=== PATIENT | female | born 1990 | race African-American/Black ===

== ENCOUNTER 2018-10-08 18:09 | Emergency (ER) | payer SELFPAY ==
--- OUTSIDE RECORDS SUMMARY | 2018-10-08 18:11 | XMS REPORT ---
:1990 [facility] Address [address] [place] [address] [address] [place] [address] Care Team Providers Name Role Phone Unavailable Unavailable Unavailable Problems This patient has no known problems. Allergies, Adverse Reactions, Alerts This patient has no known allergies or adverse reactions. Medications This patient has no known medications. Encounters Start End Encounter Admission Attending Care Care Encounter Date/Time Date/Time Type Type Clinicians Facility Department ID 2016-11-15 2016-11-15 Outpatient [facility] [id number] 00:00:00 00:00:00
[2018-10-08 18:47] LABS: Urine Blood 3+ (NEG); Urine Glucose NEGATIVE (NEG); Urine Protein NEGATIVE (NEG)
[2018-10-08 19:22] LABS: Absolute Lymphocytes (CBC) 2.3 K/uL (0.7-4.9); Absolute Neutrophil 8.6 K/uL (1.8-8.0); Basophils % 0.5 % (0-1.3); Eosinophils % 1.1 % (0-4.4); Hematocrit 38.6 % (36.0-45.0); Lymphocytes % 18.9 % (15.3-44.8); MPV 7.6 fL (7.6-11.3); Monocytes % 8.1 % (3.3-12.3); RBC Red Blood Cell Count 4.53 M/uL (3.86-4.86)
[2018-10-08 19:49] LABS: Potassium 3.6 mmol/L (3.5-5.1)
--- NOTE | 2018-10-08 20:43 | RAD REPORT ---
EXAM DESCRIPTION: US - Transvaginal OB - 10/08/2018 7:36 pm CLINICAL HISTORY: VAGINAL BLEEDING COMPARISON: <Comparisons> FINDINGS: A single gestational sac is seen within the uterus. The shape of the sac is within normal limits for gestational age. Within the sac is a single pole with crown-rump length of 4 mm, cor relating to estimated gestational age of 6 weeks 1 day. Estimated date of delivery is 06/02/2019. Heart rate is 125 BPM. The placenta is not yet developed due to early gestational age. Prominent hemorrhagic cyst measuring 6 cm noted in the left ovary. The right ovary is unremarkable. N o maternal adnexal masses. Normal Doppler blood flow was demonstrated to both ovaries. IMPRESSION: Single live early intrauterine gestation with estimated gestational age of 6 weeks 1 day , JS 06/02/2019. 6 cm hemorrhagic cyst left ovary.
--- NOTE | 2018-10-08 21:10 | ER ---
Nurse's Notes [facility] Name: Charlene Evans Age: 28 yrs Sex: Female : 1990 Arrival Date: 10/08/2018 Time: 18:12 Bed 19 Private MD: None, None Diagnosis: Threatened Presentation: 10/08 18:13 Presenting complaint: Patient states: bright red vaginal spotting and abd cramping sv started Sunday and today has increased. Denies dizziness/SOB. Pt is about 7 weeks . Transition of care: patient was not received from another setting of care. Onset of symptoms was October 06, 2018. Care prior to arrival: None. 18:13 Method Of Arrival: Ambulatory sv 18:13 Acuity: JOSE 3 sv 18:30 Risk Assessment: Do you want to hurt yourself or someone else? Patient reports no tw2 desire to harm self or others. Initial Sepsis Screen: Does the patient meet any 2 criteria? No. Patient's initial sepsis screen is negative. Does the patient have a suspected source of infection? No. Patient's initial sepsis screen is negative. Triage Assessment: 18:30 General: Appears in no apparent distress. well groomed, Behavior is calm, cooperative, tw2 appropriate for age. Pain: Denies pain. : Reports vaginal bleeding that is bright red, light flow. 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 - Social history:: Smoking status: . - Ebola Screening: : Patient denies travel to an Ebola-affected area in the 21 days before illness onset. Screenin:30 Abuse screen: Denies threats or abuse. Nutritional screening: No deficits noted. tw2 Tuberculosis screening: No symptoms or risk factors identified. Fall Risk None identified. Assessment: 18:31 General: Appears in no apparent distress. well groomed, Behavior is calm, cooperative, tw2 appropriate for age. Pain: Denies pain. Neuro: Level of Consciousness is awake, alert, obeys commands, Oriented to person, place, time, situation. Cardiovascular: Heart tones S1 S2 Capillary refill < 3 seconds Patient's skin is warm and dry. Respiratory: Airway is patent Respiratory effort is even, unlabored, Respiratory pattern is regular, symmetrical, Breath sounds are clear bilaterally. GI: No signs and/or symptoms were reported involving the gastrointestinal system. : Urine is clear, Reports vaginal bleeding that is. EENT: No signs and/or symptoms were reported regarding the EENT system. Derm: No signs and/or symptoms reported regarding the dermatologic system. Musculoskeletal: No signs and/or symptoms reported regarding the musculoskeletal system. Range of motion: intact in all extremities. 19:20 General: Appears in no apparent distress. comfortable, well groomed, well developed, ao Behavior is calm, cooperative, appropriate for age. Pain: Denies pain. Neuro: Level of Consciousness is awake, alert, obeys commands, Oriented to person, place, time, situation, Appropriate for age Moves all extremities. Full function Speech is normal, Facial symmetry appears normal. Cardiovascular: Capillary refill < 3 seconds Patient's skin is warm and dry. Respiratory: Airway is patent Respiratory effort is even, unlabored, Respiratory pattern is regular, symmetrical. GI: Abdomen is non-distended. : Reports vaginal bleeding that is. EENT: No signs and/or symptoms were reported regarding the EENT system. Derm: No signs and/or symptoms reported regarding the dermatologic system. Musculoskeletal: Range of motion: intact in all extremities. 20:54 Reassessment: Patient appears in no apparent distress at this time. No changes from ao previously documented assessment. Patient and/or family updated on plan of care and expected duration. Pain level reassessed. 21:29 Reassessment: Dc instructions given to patient and significant other. Patient agree to ao follow up on blood work and with OBG and PCP. Vital Signs: 18:18 BP 129 / 84; Pulse 91; Resp 18; Temp 98.4; Pulse Ox 99% ; Weight 106.59 kg; Height 5 sv ft. 5 in. (165.10 cm); Pain 2/10; 20:52 BP 124 / 70; Pulse 87; Resp 14; Pulse Ox 99% on R/A; Pain 0/10; ao 18:18 Body Mass Index 39.11 (106.59 kg, 165.10 cm) sv ED Course: 18:12 Patient arrived in ED. mr 18:13 None, None is Private Physician. mr 18:18 Triage completed. sv 18:19 Arm band placed on. sv 18:22 Mau Avilez NP is PHCP. pm1 18:22 Oliverio Rouse MD is Attending Physician. pm1 18:30 Shivani Dudley, TRINI is Primary Nurse. tw2 18:31 Bed in low position. Call light in reach. Pulse ox on. NIBP on. tw2 18:37 Urine collected: clean catch specimen, cloudy, juan m colored. jb1 18:53 Inserted saline lock: 22 gauge in right antecubital area, using aseptic technique. tw2 Blood collected. 19:00 Report given to TRINI Galan - pending US. labs sent. tw2 19:36 US Transvaginal Ob In Process Unspecified. EDMS 21:28 No provider procedures requiring assistance completed. IV discontinued, intact, ao bleeding controlled, No redness/swelling at site. Pressure dressing applied. Administered Medications: No medications were administered Outcome: 21:09 Discharge ordered by MD. pm1 21:28 Discharged to home ambulatory. ao 21:28 Condition: stable 21:28 Discharge instructions given to patient, Instructed on discharge instructions, follow up and referral plans. Demonstrated understanding of instructions, follow-up care. 21:30 Patient left the ED. ao Signatures: Dispatcher [employer] EDMS Octavio Hollingsworth jb1 Devika Carmona RN RN sv Marizol Morin, TRINI Galan RN, Patrick, NP FUR COMBER pm1 Shivani Dudley RN RN tw2 Corrections: (The following items were deleted from the chart) 18:19 18:13 Presenting complaint: Patient states: bright red vaginal spotting started Sunday sv and today has increased. Denies dizziness/SOB. Pt is about 7 weeks . sv
--- NOTE | 2018-10-08 21:10 | EDPHYS ---
Physician Documentation [facility] Name: Charlene Evans Age: 28 yrs Sex: Female : 1990 Arrival Date: 10/08/2018 Time: 18:12 Bed 19 Private MD: None, None ED Physician Oliverio Rouse HPI: 10/08 19:00 This 28 yrs old Black Female presents to ER via Ambulatory with complaints of Vaginal pm1 Bleeding, 7wks . 19:00 The patient presents with vaginal bleeding that is light. Onset: The symptoms/episode pm1 began/occurred 2 day(s) ago. Modifying factors: The symptoms are alleviated by nothing, the symptoms are aggravated by nothing. Associated signs and symptoms: Pertinent negatives: dysuria, fever, nausea, vomiting. Severity of symptoms: in the emergency department the symptoms are actually worse. The patient is sexually active, does not use protection during intercourse. The patient has not experienced similar symptoms in the past. The patient has not recently seen a physician. Patient took plan B multiple weeks ago but took a test about 1 week ago and she is still . 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 - Social history:: Smoking status: . - Ebola Screening: : Patient denies travel to an Ebola-affected area in the 21 days before illness onset. ROS: 19:00 Positive for vaginal bleeding, Negative for burning with urination, vaginal pm1 discharge. 19:00 Constitutional: Negative for fever, chills, and weight loss, Eyes: Negative for injury, pain, redness, and discharge, ENT: Negative for injury, pain, and discharge, Neck: Negative for injury, pain, and swelling, Cardiovascular: Negative for chest pain, palpitations, and edema, Respiratory: Negative for shortness of breath, cough, wheezing, and pleuritic chest pain, Abdomen/GI: Negative for abdominal pain, nausea, vomiting, diarrhea, and constipation, Back: Negative for injury and pain, MS/Extremity: Negative for injury and deformity, Skin: Negative for injury, rash, and discoloration, Neuro: Negative for headache, weakness, numbness, tingling, and seizure. Exam: 19:00 Constitutional: This is a well developed, well nourished patient who is awake, alert, pm1 and in no acute distress. Head/Face: Normocephalic, atraumatic. Eyes: Pupils equal round and reactive to light, extra-ocular motions intact. Lids and lashes normal. Conjunctiva and sclera are non-icteric and not injected. Cornea within normal limits. Periorbital areas with no swelling, redness, or edema. ENT: Nares patent. No nasal discharge, no septal abnormalities noted. Tympanic membranes are normal and external auditory canals are clear. Oropharynx with no redness, swelling, or masses, exudates, or evidence of obstruction, uvula midline. Mucous membranes moist. Neck: Trachea midline, no thyromegaly or masses palpated, and no cervical lymphadenopathy. Supple, full range of motion without nuchal rigidity, or vertebral point tenderness. No Meningismus. Chest/axilla: Normal chest wall appearance and motion. Nontender with no deformity. No lesions are appreciated. Cardiovascular: Regular rate and rhythm with a normal S1 and S2. No gallops, murmurs, or rubs. Normal PMI, no JVD. No pulse deficits. Respiratory: Lungs have equal breath sounds bilaterally, clear to auscultation and percussion. No rales, rhonchi or wheezes noted. No increased work of breathing, no retractions or nasal flaring. Abdomen/GI: Soft, non-tender, with normal bowel sounds. No distension or tympany. No guarding or rebound. No evidence of tenderness throughout. Back: No spinal tenderness. No costovertebral tenderness. Full range of motion. Skin: Warm, dry with normal turgor. Normal color with no rashes, no lesions, and no evidence of cellulitis. MS/ Extremity: Pulses equal, no cyanosis. Neurovascular intact. Full, normal range of motion. 19:00 Neuro: Orientation: is normal, Motor: is normal, moves all fours. Vital Signs: 18:18 BP 129 / 84; Pulse 91; Resp 18; Temp 98.4; Pulse Ox 99% ; Weight 106.59 kg; Height 5 sv ft. 5 in. (165.10 cm); Pain 2/10; 20:52 BP 124 / 70; Pulse 87; Resp 14; Pulse Ox 99% on R/A; Pain 0/10; ao 18:18 Body Mass Index 39.11 (106.59 kg, 165.10 cm) sv MDM: 18:27 Patient medically screened. pm1 21:07 Data reviewed: vital signs. Data interpreted: Pulse oximetry: on room air is 99 %. pm1 Interpretation: normal. 21:09 Counseling: I had a detailed discussion with the patient and/or guardian regarding: the pm1 historical points, exam findings, and any diagnostic results supporting the discharge/admit diagnosis, lab results, radiology results, the need for outpatient follow up, to return to the emergency department if symptoms worsen or persist or if there are any questions or concerns that arise at home. 10/08 18:40 Order name: Urine Dipstick--Ancillary (enter results); Complete Time: 21:07 bd 10/08 18:40 Order name: Urine --Ancillary (enter results); Complete Time: 21:07 bd 10/08 18:41 Order name: Quantitative Hcg; Complete Time: 21:07 pm1 10/08 18:41 Order name: Abo/rh Typing; Complete Time: 21:07 pm1 10/08 18:41 Order name: Basic Metabolic Panel; Complete Time: 21:07 pm1 10/08 18:41 Order name: CBC with Diff; Complete Time: 21:07 pm1 10/08 18:27 Order name: Urine Dipstick-Ancillary (obtain specimen); Complete Time: 18:37 pm1 10/08 18:27 Order name: Urine Test (obtain specimen); Complete Time: 18:37 pm1 10/08 18:41 Order name: IV Saline Lock; Complete Time: 18:58 pm1 10/08 18:41 Order name: Labs collected and sent; Complete Time: 18:58 pm1 10/08 18:41 Order name: NPO; Complete Time: 18:45 pm1 10/08 18:42 Order name: US Transvaginal Ob; Complete Time: 21:07 pm1 Administered Medications: No medications were administered Disposition: 10/09 09:38 Co-signature as Attending Physician, Oliverio Rouse MD. Disposition: 10/08/18 21:09 Discharged to Home. Impression: Threatened . - Condition is Stable. - Discharge Instructions: Threatened Miscarriage, Pelvic Rest. - Medication Reconciliation Form, Thank You Letter, Antibiotic Education, Prescription Opioid Use, Work release form form. - Follow up: Emergency Department; When: As needed; Reason: Worsening of condition. Follow up: Private Physician; When: 2 - 3 days; Reason: Recheck today's complaints, Continuance of care, Re-evaluation by your physician. - Problem is new. - Symptoms have improved. Signatures: Dispatcher [employer] Devika Miller, RN RN Adama Armando RN RN ao Mau Avilez NP PETROLEUM GEOLOGIST pm1 Shivani Dudley RN RN tw2 Oliverio Rouse MD MD gs Corrections: (The following items were deleted from the chart) 10/08 21:30 21:09 10/08/2018 21:09 Discharged to Home. Impression: Threatened . Condition ao is Stable. Forms are Work release form, Medication Reconciliation Form, Thank You Letter, Antibiotic Education, Prescription Opioid Use. Follow up: Emergency Department; When: As needed; Reason: Worsening of condition. Follow up: Private Physician; When: 2 - 3 days; Reason: Recheck today's complaints, Continuance of care, Re-evaluation by your physician. Problem is new. Symptoms have improved. pm1
== END 2018-10-08 21:30 | disposition home or self-care (01) ==
LOC: ER 18:09
DX: O20.0 Threatened abortion (principal); Z3A.01 Less than 8 weeks gestation of pregnancy; Z91.040 Latex allergy status; Z91.048 Other nonmedicinal substance allergy status
CPT/HCPCS: 36415; 76817; 80048; 81003; 81025; 84702; 85025; 86900; 86901; 99284

== ENCOUNTER 2018-10-09 21:40 | Emergency (ER) | payer SELFPAY ==
--- OUTSIDE RECORDS SUMMARY | 2018-10-09 21:42 | XMS REPORT ---
:1990 Author [facility] Address [address] [place] [address] [address] [place] [address] Care Team Providers Name Role Phone Unavailable Unavailable Unavailable Problems This patient has no known problems. Allergies, Adverse Reactions, Alerts This patient has no known allergies or adverse reactions. Medications This patient has no known medications. Encounters Start End Encounter Admission Attending Care Care Encounter Date/Time Date/Time Type Type Clinicians Facility Department ID 2016-11-15 2016-11-15 Outpatient [facility] [id number] 00:00:00 00:00:00
[2018-10-09 22:29] LABS: Absolute Lymphocytes (CBC) 2.1 K/uL (0.7-4.9); Absolute Neutrophil 6.9 K/uL (1.8-8.0); Basophils % 0.7 % (0-1.3); Eosinophils % 1.4 % (0-4.4); Hematocrit 36.8 % (36.0-45.0); Lymphocytes % 20.4 % (15.3-44.8); MPV 7.6 fL (7.6-11.3); Monocytes % 9.5 % (3.3-12.3); RBC Red Blood Cell Count 4.37 M/uL (3.86-4.86)
[2018-10-09 22:31] LABS: Urine Blood 3+ (NEG); Urine Glucose NEGATIVE (NEG); Urine Protein 2+ (NEG); Urine pH 6.5 (5.0-7.0)
[2018-10-09 23:01] LABS: BUN Blood Urea Nitrogen 14 mg/dL (7-18); Bicarbonate 24 mmol/L (21-32); Glucose Level 89 mg/dL (74-106); HCG, Quantitative 1756 mIU/mL (1-3); Potassium 3.7 mmol/L (3.5-5.1); Sodium Level 141 mmol/L (136-145)
--- NOTE | 2018-10-09 23:27 | ER ---
Nurse's Notes [facility] Name: Charlene Evans Age: 28 yrs Sex: Female : 1990 Arrival Date: 10/09/2018 Time: 21:41 Bed 23 Private MD: Diagnosis: Incomplete spontaneous without complication Presentation: 10/09 21:49 Presenting complaint: Patient states: "So I was jut here yesterday because I'm aj1 and I was bleeding, they diagnosed me as a threatened miscarriage, but I've passed 3 clots today." Reports she has an appointment at [facility] on Sunday. Reports that her bleeding is "redder and heavier" than yesterday and she is currently bleeding "Like a regular period" Patient reports that she is currently 6 weeks . Transition of care: patient was not received from another setting of care. Onset of symptoms was October 09, 2018. Risk Assessment: Do you want to hurt yourself or someone else? Patient reports no desire to harm self or others. Initial Sepsis Screen: Does the patient meet any 2 criteria? No. Patient's initial sepsis screen is negative. Does the patient have a suspected source of infection? No. Patient's initial sepsis screen is negative. Care prior to arrival: None. 21:49 Method Of Arrival: Ambulatory aj1 21:49 Acuity: JOSE 3 aj1 Triage Assessment: 21:52 General: Appears in no apparent distress. comfortable, Behavior is calm, cooperative, aj1 appropriate for age. Pain: Denies pain. Neuro: No deficits noted. Level of Consciousness is awake, alert, obeys commands, Oriented to person, place, time, situation. Cardiovascular: Patient's skin is warm and dry. Respiratory: Airway is patent Respiratory effort is even, unlabored, Respiratory pattern is regular, symmetrical. : Reports vaginal bleeding that is bright red. 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 - Social history:: Smoking status: Patient/guardian denies using tobacco. - Ebola Screening: : Patient denies travel to an Ebola-affected area in the 21 days before illness onset. Screenin:59 Abuse screen: Denies threats or abuse. Denies injuries from another. Nutritional mg2 screening: No deficits noted. Tuberculosis screening: No symptoms or risk factors identified. Fall Risk None identified. Assessment: 23:04 General: Appears in no apparent distress. comfortable, Behavior is calm, cooperative. mg2 Pain: Complains of pain in abdomen Pain does not radiate. Pain currently is 2 out of 10 on a pain scale. Quality of pain is described as crampy, Pain began gradually, Is intermittent. 23:04 Neuro: Level of Consciousness is awake, alert, obeys commands, Oriented to person, mg2 place, time, situation. Cardiovascular: Capillary refill < 3 seconds Patient's skin is warm and dry. Respiratory: Airway is patent Respiratory effort is even, unlabored, Respiratory pattern is regular, symmetrical. GI: No signs and/or symptoms were reported involving the gastrointestinal system. GI: No signs and/or symptoms were reported involving the gastrointestinal system. : Reports cramping, lower quadrant(s). EENT: No signs and/or symptoms were reported regarding the EENT system. Derm: Skin is intact, is healthy with good turgor, Skin is pink, warm \\T\\ dry. normal. Musculoskeletal: Circulation, motion, and sensation intact. Capillary refill < 3 seconds. 23:07 Obstetrical Assessment: General assessment: awake and alert, skin warm and dry. mg2 23:33 Reassessment: Patient appears in no apparent distress at this time. Patient and/or mg2 family updated on plan of care and expected duration. Pain level reassessed. small bleeding noted on pelvic exam. discharge. Vital Signs: 21:52 BP 110 / 70; Pulse 82; Resp 18; Temp 98.0; Pulse Ox 98% on R/A; Weight 106.59 kg (R); aj1 Height 5 ft. 5 in. (165.10 cm) (R); Pain 0/10; 23:34 BP 115 / 78; Pulse 80; Resp 18; Pulse Ox 100% on R/A; Pain 0/10; mg2 21:52 Body Mass Index 39.11 (106.59 kg, 165.10 cm) aj1 Vitals: 23:34 Heart Tones not done. mg2 ED Course: 21:41 Patient arrived in ED. am2 21:51 Triage completed. aj1 21:52 Arm band placed on Patient placed in an exam room. aj1 21:54 Franko Gaming PA is PHCP. cp 21:54 Franko Gonzalez MD is Attending Physician. cp 21:57 Tez Montiel, RN is Primary Nurse. mg2 21:59 Patient has correct armband on for positive identification. Pulse ox on. NIBP on. mg2 22:00 Urine collected: clean catch specimen, clear, juan m colored, blood tinged, Amount jp3 Voided: 5mL. 22:06 Warm blanket given. Pillow given. jp3 22:18 Urine Dipstick--Ancillary (enter results) Sent. jb4 22:18 Urine --Ancillary (enter results) Sent. jb4 22:30 Inserted saline lock: 20 gauge in right forearm, using aseptic technique. Blood mg2 collected. 23:19 Assist provider with pelvic exam: Set up pelvic tray. Performed by Franko YUAN mg2 Patient tolerated well. 23:34 IV discontinued, intact, bleeding controlled, No redness/swelling at site. Pressure mg2 dressing applied. Administered Medications: No medications were administered Point of Care Testing: Urine : 23:07 hCG Reading: Positive; Control Reading: Positive; mg2 Outcome: 23:27 Discharge ordered by . cp 23:34 Discharged to home ambulatory, with friend. mg2 23:34 Condition: stable 23:34 Discharge instructions given to patient, friend, Instructed on discharge instructions, follow up and referral plans. Demonstrated understanding of instructions, follow-up care. 23:35 Patient left the ED. mg2 Signatures: Lesvia Araujo RN RN aj1 Franko Gaming PA PA cp Jose Guadalupe Quiroga RN RN jb4 Nichol Rivera am2 Tez Montiel, TRINI RN mg2 Michael Mora jp3 Corrections: (The following items were deleted from the chart) 23:06 23:04 Pain: Denies pain. mg2 mg2
--- NOTE | 2018-10-09 23:28 | EDPHYS ---
Physician Documentation [facility] Name: Charlene Evans Age: 28 yrs Sex: Female : 1990 Arrival Date: 10/09/2018 Time: 21:41 Bed 23 Private MD: ED Physician Franko Gonzalez HPI: 10/09 22:10 This 28 yrs old Black Female presents to ER via Ambulatory with complaints of Vaginal cp Bleeding, + Preg <12wks, Abdominal Cramping. 22:10 The patient presents to the emergency department with vaginal bleeding, with clots. The cp estimated gestational age is 6 weeks. Associated signs and symptoms: Pertinent negatives: abdominal pain, fever. The patient has been recently seen at the [facility] Emergency Department, yesterday, for similar complaints labs were performed, an ultrasound was performed. 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 - Social history:: Smoking status: Patient/guardian denies using tobacco. - Ebola Screening: : Patient denies travel to an Ebola-affected area in the 21 days before illness onset. ROS: 22:15 Eyes: Negative for injury, pain, redness, and discharge. cp 22:15 Constitutional: Negative for body aches, chills, fever, poor PO intake. 22:15 Cardiovascular: Negative for chest pain, palpitations. cp 22:15 Respiratory: Negative for cough, shortness of breath, wheezing. 22:15 Abdomen/GI: Negative for abdominal pain, vomiting, diarrhea, constipation. 22:15 : Positive for vaginal bleeding, Negative for urinary symptoms. 22:15 Neuro: Negative for altered mental status, headache, syncope, weakness. 22:15 All other systems are negative. Exam: 23:10 Constitutional: The patient appears in no acute distress, alert, awake, comfortable, cp non-toxic, well developed, well nourished. 23:10 Head/Face: Normocephalic, atraumatic. cp 23:10 Eyes: Periorbital structures: appear normal, Conjunctiva: normal, no exudate, no injection, Sclera: no appreciated abnormality, Lids and lashes: appear normal, bilaterally. 23:10 ENT: External ear(s): are unremarkable, Nose: is normal, Mouth: Lips: moist, Oral mucosa: moist, Posterior pharynx: is normal, airway is patent, no erythema, no exudate. 23:10 Chest/axilla: Inspection: normal, Palpation: is normal, no crepitus, no tenderness. 23:10 Cardiovascular: Rate: normal, Rhythm: regular. 23:10 Respiratory: the patient does not display signs of respiratory distress, Respirations: normal, no use of accessory muscles, no retractions, no splinting, no tachypnea, labored breathing, is not present, Breath sounds: are clear throughout, no decreased breath sounds, no stridor, no wheezing. 23:10 Abdomen/GI: Inspection: abdomen appears normal, Palpation: abdomen is soft and non-tender, in all quadrants, involuntary guarding, is not appreciated. 23:10 : Pelvic Exam: External exam: is normal, Speculum exam: moderate bleeding, blood clots in vaginal vault, os that is closed, no tissue in cervix is seen, no tissue in vagina is seen, the nurse was present for the exam. Vital Signs: 21:52 BP 110 / 70; Pulse 82; Resp 18; Temp 98.0; Pulse Ox 98% on R/A; Weight 106.59 kg (R); aj1 Height 5 ft. 5 in. (165.10 cm) (R); Pain 0/10; 23:34 BP 115 / 78; Pulse 80; Resp 18; Pulse Ox 100% on R/A; Pain 0/10; mg2 21:52 Body Mass Index 39.11 (106.59 kg, 165.10 cm) aj1 MDM: 22:00 Patient medically screened. erinn 22:30 Differential diagnosis: threatened Ab, inevitable Ab, complete Ab, retained Ab. cp 23:25 Data reviewed: vital signs, nurses notes, old medical records, lab test result(s), I cp have discussed the patient's presentation/case with the attending Emergency Department Physician; and as a result, I will discharge patient. 23:25 Counseling: I had a detailed discussion with the patient and/or guardian regarding: the cp historical points, exam findings, and any diagnostic results supporting the discharge/admit diagnosis, lab results, radiology results, the need for outpatient follow up, an OB/Gyne specialist, to return to the emergency department if symptoms worsen or persist or if there are any questions or concerns that arise at home. 10/09 22:05 Order name: Quantitative Hcg; Complete Time: 23:06 cp 10/09 23:06 Interpretation: HCGQ 1756; Reviewed. 10/09 22:05 Order name: Basic Metabolic Panel; Complete Time: 23:06 cp 10/09 22:05 Order name: Urine Test (obtain specimen); Complete Time: 22:18 cp 10/09 22:05 Order name: CBC with Diff; Complete Time: 22:51 cp 10/09 22:51 Interpretation: Reviewed. 10/09 22:07 Order name: Urine Dipstick--Ancillary (enter results); Complete Time: 22:51 cm6 10/09 22:52 Interpretation: Normal except: UBLD 3+; UPROT 2+. 10/09 22:07 Order name: Urine --Ancillary (enter results); Complete Time: 22:51 cm6 10/09 22:05 Order name: IV Saline Lock; Complete Time: 22:30 cp 10/09 22:05 Order name: Labs collected and sent; Complete Time: 22:30 cp 10/09 22:05 Order name: NPO; Complete Time: 22:18 cp 10/09 22:05 Order name: Urine Dipstick-Ancillary (obtain specimen); Complete Time: 22:18 cp 10/09 22:18 Order name: Pelvic Exam Setup; Complete Time: 22:49 cp Administered Medications: No medications were administered Point of Care Testing: Urine : 23:07 hCG Reading: Positive; Control Reading: Positive; mg2 Disposition: 10/10 07:02 Co-signature as Attending Physician, Franko Gonzalez MD I agree with the assessment and erinn plan of care. Disposition: 10/09/18 23:27 Discharged to Home. Impression: Incomplete spontaneous without complication. - Condition is Stable. - Discharge Instructions: Incomplete Miscarriage, Pelvic Rest. - Medication Reconciliation Form, Thank You Letter, Antibiotic Education, Prescription Opioid Use form. - Follow up: Private Physician; When: 1 - 2 days; Reason: Recheck today's complaints. - Problem is new. - Symptoms are unchanged. Signatures: Dispatcher [employer] EDLesvia Carrillo RN RN aj1 Franko Gonzalez MD MD cha Page, Corey, PA PA cp Gardose, Michele, RN RN mg2 Corrections: (The following items were deleted from the chart) 10/09 23:35 23:27 10/09/2018 23:27 Discharged to Home. Impression: Incomplete spontaneous mg2 without complication. Condition is Stable. Forms are Medication Reconciliation Form, Thank You Letter, Antibiotic Education, Prescription Opioid Use. Follow up: Private Physician; When: 1 - 2 days; Reason: Recheck today's complaints. Problem is new. Symptoms are unchanged. cp
== END 2018-10-09 23:35 | disposition home or self-care (01) ==
LOC: ER 21:40
DX: O03.4 Incomplete spontaneous abortion without complication (principal); Z3A.01 Less than 8 weeks gestation of pregnancy
CPT/HCPCS: 36415; 80048; 81003; 81025; 84702; 85025; 99284

== ENCOUNTER 2020-02-15 18:23 | Emergency (ER) | payer SELFPAY ==
--- OUTSIDE RECORDS SUMMARY | 2020-02-15 18:26 | XMS REPORT | Continuity of Care Document ---
:1990 Author Organization [facility] t Address [address] [place] [address] [address] [place] [address] Care Team Providers Name Role Phone Unavailable Unavailable Unavailable Problems This patient has no known problems. Allergies, Adverse Reactions, Alerts This patient has no known allergies or adverse reactions. Medications This patient has no known medications. Procedures This patient has no known procedures. Results This patient has no known results.
[2020-02-15] MEDS ORDERED: DIPHENHYDRAMINE 50 MG/ML VIAL ONE (19:24)
[2020-02-15] MEDS ORDERED: NA CHLORIDE 0.9% 500 ML ONE (19:24)
[2020-02-15] MEDS ORDERED: METOCLOPRAMIDE 10 MG/2mL INJ ONE (19:24)
[2020-02-15 19:35] LABS: Absolute Lymphocytes (CBC) 2.3 K/uL (0.7-4.9); Basophils % 0.5 % (0-1.3); Lymphocytes % 26.2 % (15.3-44.8); RBC Red Blood Cell Count 4.45 M/uL (3.86-4.86)
[2020-02-15 19:38] LABS: Urine Blood NEGATIVE (NEG); Urine Glucose NEGATIVE (NEG); Urine Protein NEGATIVE (NEG); Urine Specific Gravity 1.015 (1.005-1.030)
[2020-02-15 19:50] LABS: ALT/SGPT 17 U/L (12-78); AST/SGOT 23 U/L (15-37); Alkaline Phosphatase 59 U/L (45-117); BUN Blood Urea Nitrogen 13 mg/dL (7-18); Bicarbonate 19 mmol/L (21-32); Bilirubin Direct < 0.1 mg/dL (0-0.2); Bilirubin Total 0.1 mg/dL (0.2-1.0); Glucose Level 95 mg/dL (74-106); Lipase 175 U/L (73-393); Potassium 4.2 mmol/L (3.5-5.1); Protein, Total 8.1 g/dL (6.4-8.2); Sodium Level 140 mmol/L (136-145)
--- NOTE | 2020-02-15 20:45 | RAD REPORT ---
EXAM DESCRIPTION: US - Abdomen Exam Limited - 02/15/2020 8:34 pm CLINICAL HISTORY: epigastric pain, vomiting COMPARISON: Abdomen Pelvis W Contrast dated 02/15/2020 FINDINGS: No gallstones, sludge or other abnormalities within the gallbladder lumen. There is no wal l thickening or pericholecystic fluid. No common duct stone or biliary tree dilatation identified. IMPRESSION: Normal gallbladder and biliary tree ultrasound.
--- NOTE | 2020-02-15 20:55 | RAD REPORT ---
EXAM DESCRIPTION: CT - Abdomen Pelvis W Contrast - 02/15/2020 8:10 pm CLINICAL HISTORY: vomiting COMPARISON: Transvaginal OB dated 10/08/2018 TECHNIQUE: Biphasic, helical CT imaging of the abdomen and pelvis was performed following 100 ml non -ionic IV contrast. No oral contrast administered All CT scans are performed using dose optimization technique as appropriate and may include automated exposure control or mA/KV adjustment according to patient size. FINDINGS: No suspicious findings in the lung bases. Liver and spleen show no suspicious findings. No portal vein abnormality seen. No solid mass of the p ancreas. There is a questionable 7 mm cystic mass along the superior aspect of the pancreatic body in the midline. No peripancreatic stranding. Gallbladder is mostly contracted. No stones were seen on t he ultrasound of the same date. No biliary tree dilatation. There is a 4 mm hyperdensity in the duod enal C-loop. This appears to be distant from the expected entry site of the biliary tree. This could be part of ingested medication. Duct stone or pancreatic stone is unlikely. Symmetric renal function is seen with no hydronephrosis or suspicious renal mass. No pyelonephritis o r acute parenchymal process. No bladder abnormalities. No adrenal abnormalities. Both ovaries are identifiable and appear to be within normal limits. Uterus is deviated to the left. There is a large mass in the central pelvis that is believed to be an exophytic mass projecting from the right fundal margin of the uterus. This is 12 cm CC x 10 cm TR x 8 cm AP. Mass is centrally necro tic or hypodense with a thick 1-2 centimeter wall. No calcification component. No dilated bowel loops or bowel wall thickening. No free air, free fluid or inflammatory stranding. No hernia, mass or bulky lymphadenopathy. No suspicious bony findings. IMPRESSION: No bowel obstruction, free air or surgically emergent finding. Patient has a large 12 x 10 x 8 cm pelvic mass believed to extend off the right lateral margin of the uterus. This is likely a large centrally necrotic fibroid. Discrete ovaries are identifiable.
--- NOTE | 2020-02-15 21:09 | EDPHYS ---
Physician Documentation [facility] Name: Charlene Evans Age: 29 yrs Sex: Female : 1990 Arrival Date: 02/15/2020 Time: 18:25 Bed 14 Private MD: ED Physician Haris Grove HPI: 02/14 19:12 This 29 yrs old Black Female presents to ER via Ambulatory with complaints of Abdominal jmm Pain, Vomiting - indigestion. 19:12 The patient presents with abdominal pain in the epigastric area. Onset: The jmm symptoms/episode began/occurred gradually, 1 month(s) ago. The symptoms do not radiate. Associated signs and symptoms: Pertinent positives: vomiting. This is a 29 year old female with no chronic medical conditions that presents to the ED with complaints of epigastric discomfort, vomiting. Patient states she feels fullness after eating but will immediately vomit her food. Denies diarrhea. . 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 - Social history:: Smoking status: Patient denies any tobacco usage or history of. ROS: 19:12 Constitutional: Negative for fever, chills, and weight loss, Cardiovascular: Negative jmm for chest pain, palpitations, and edema, Respiratory: Negative for shortness of breath, cough, wheezing, and pleuritic chest pain. 19:12 Abdomen/GI: Positive for abdominal pain, nausea and vomiting. 19:12 All other systems are negative. Exam: 19:12 Constitutional: This is a well developed, well nourished patient who is awake, alert, jmm and in no acute distress. Head/Face: atraumatic. Eyes: EOMI, no conjunctival erythema appreciated ENT: Moist Mucus Membranes Neck: Trachea midline, Supple Chest/axilla: Normal chest wall appearance and motion. Cardiovascular: Regular rate and rhythm. No edema appreciated Respiratory: Normal respirations, no respiratory distress appreciated Abdomen/GI: Non distended, soft Back: Normal ROM Skin: General appearance color normal MS/ Extremity: Moves all extremities, no obvious deformities appreciated, no edema noted to the lower extremities Neuro: Awake and alert, normal gait Psych: Behavior is normal, Mood is normal, Patient is cooperative and pleasant Vital Signs: 18:44 BP 120 / 79; Pulse 107; Resp 16 S; Temp 98.2(O); Pulse Ox 95% on R/A; Weight 100.7 kg; jl7 Height 5 ft. 5 in. (165.10 cm); Pain 0/10; 20:00 BP 105 / 70; Pulse 90; Resp 19; Pulse Ox 99% ; rr5 21:18 BP 93 / 65; Pulse 91; Resp 16; Temp 98.0(O); Pulse Ox 96% on R/A; Pain 0/10; mt2 18:44 Body Mass Index 36.94 (100.70 kg, 165.10 cm) jl7 MDM: 18:56 Patient medically screened. vania 21:07 Data reviewed: vital signs, nurses notes. Counseling: I had a detailed discussion with gi the patient and/or guardian regarding: the historical points, exam findings, and any diagnostic results supporting the discharge/admit diagnosis, lab results, radiology results, the need for outpatient follow up, to return to the emergency department if symptoms worsen or persist or if there are any questions or concerns that arise at home. ED course: Patient states she feels much better. Patient advised of the need to follow up with GI for further evaluation. Patient also made aware of the large intrauterine mass along with the need to follow up with [facility] for further evaluation. Patient understood and agrees with the plan of care. . 02/14 19:11 Order name: Basic Metabolic Panel; Complete Time: 19:51 [facility] 02/14 19:11 Order name: CBC with Diff; Complete Time: 19:44 [facility] 02/14 19:11 Order name: Hepatic Function; Complete Time: 19:51 [facility] 02/14 19:11 Order name: Lipase; Complete Time: 19:51 [facility] 02/14 19:33 Order name: Urine Dipstick--Ancillary (enter results); Complete Time: 19:44 [facility] 02/14 19:33 Order name: Urine --Ancillary (enter results); Complete Time: 19:44 [facility] 02/14 19:11 Order name: IV Saline Lock; Complete Time: 19:44 [facility] 02/14 19:11 Order name: Labs collected and sent; Complete Time: 19:44 [facility] 02/14 19:11 Order name: CT Abd/Pelvis - IV Contrast Only; Complete Time: 20:58 [facility] 02/14 19:11 Order name: Urine Dipstick-Ancillary (obtain specimen); Complete Time: 19:44 [facility] 02/14 19:22 Order name: US Abdomen Limited; Complete Time: 20:48 [facility] 02/14 19:11 Order name: Urine Test (obtain specimen); Complete Time: 19:44 [facility] Administered Medications: 19:30 Drug: NS 0.9% 250 ml Route: IV; Rate: bolus; Site: right antecubital; rr5 20:30 Follow up: Response: No adverse reaction; IV Status: Completed infusion; IV Intake: rr5 250ml 19:31 Drug: Reglan 10 mg Route: IVP; Site: right antecubital; rr5 21:12 Follow up: Response: No adverse reaction; Pain is decreased mt2 19:34 Drug: diphenhydrAMINE 12.5 mg Route: IVP; Site: right antecubital; rr5 21:12 Follow up: Response: No adverse reaction; Pain is decreased mt2 Disposition: 21:34 Co-signature as Attending Physician, Haris Grove MD. rn Disposition: 02/15/20 21:09 Discharged to Home. Impression: Vomiting, Leiomyoma of uterus. - Condition is Stable. - Discharge Instructions: Uterine Fibroids, Nausea and Vomiting, Adult. - Prescriptions for Pepcid 20 mg Oral Tablet - take 1 tablet by ORAL route every 12 hours for 10 days; 20 tablet. Reglan 10 mg Oral Tablet - take 1 tablet by ORAL route every 6 hours take 30 minutes before meals and at bedtime; 20 tablet. - Medication Reconciliation Form, Thank You Letter, Antibiotic Education, Prescription Opioid Use form. - Follow up: Fernando Simpson MD; When: 2 - 3 days; Reason: Recheck today's complaints, Continuance of care, Re-evaluation by your physician. Signatures: Dispatcher [employer] EDMS Rafael Dotson PA PA Haris Hunter MD MD rn Leal, Jahala, RN RN jl7 Vickey Main RN RN rr5 Hedy Dickson RN mt2 Corrections: (The following items were deleted from the chart) 21:21 21:09 02/15/2020 21:09 Discharged to Home. Impression: Vomiting; Leiomyoma of uterus. rr5 Condition is Stable. Forms are Medication Reconciliation Form, Thank You Letter, Antibiotic Education, Prescription Opioid Use. Follow up: Fernando Simpson; When: 2 - 3 days; Reason: Recheck today's complaints, Continuance of care, Re-evaluation by your physician. gi
--- NOTE | 2020-02-15 21:09 | ER ---
Nurse's Notes [facility] Name: Charlene Evans Age: 29 yrs Sex: Female : 1990 Arrival Date: 02/15/2020 Time: 18:25 Bed 14 Private MD: Diagnosis: Vomiting;Leiomyoma of uterus Presentation: 02/14 18:44 Chief complaint: Patient states: "Every time I eat I throw it up for like a month now." jl7 Pt reports epigastric pain and heart burn after eating. Coronavirus screen: Client denies travel out of the [place] in the last 14 days. At this time, the client does not indicate any symptoms associated with coronavirus-19. Ebola Screen: No symptoms or risks identified at this time. Initial Sepsis Screen: Does the patient meet any 2 criteria? No. Patient's initial sepsis screen is negative. Does the patient have a suspected source of infection? No. Patient's initial sepsis screen is negative. Risk Assessment: Do you want to hurt yourself or someone else? Patient reports no desire to harm self or others. Onset of symptoms was December 2019. Care prior to arrival: None. Transition of care: patient was not received from another setting of care. 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 - Social history:: Smoking status: Patient denies any tobacco usage or history of. Screenin:19 Abuse screen: Denies threats or abuse. Nutritional screening: No deficits noted. mt2 Tuberculosis screening: No symptoms or risk factors identified. Fall Risk None identified. Assessment: 19:10 General: Appears in no apparent distress. uncomfortable, Behavior is calm, cooperative, rr5 appropriate for age. 19:10 Neuro: Level of Consciousness is awake, alert, obeys commands, Oriented to person, rr5 place, time. Cardiovascular: Capillary refill < 3 seconds Patient's skin is warm and dry. Respiratory: Airway is patent Respiratory effort is even, unlabored, Respiratory pattern is regular, symmetrical. GI: Abdomen is round non-distended, Bowel sounds Abd is soft and non tender Reports upper abdominal pain, bloating, nausea, vomiting. : No signs and/or symptoms were reported regarding the genitourinary system. EENT: No signs and/or symptoms were reported regarding the EENT system. Derm: Skin is intact, is healthy with good turgor, Skin temperature is warm. Musculoskeletal: No signs and/or symptoms reported regarding the musculoskeletal system. 20:00 Reassessment: Patient appears in no apparent distress at this time. Patient is alert, rr5 oriented x 3, equal unlabored respirations, skin warm/dry/pink. 21:13 Reassessment: Patient and/or family updated on plan of care and expected duration. Pain mt2 level reassessed. Patient is alert, oriented x 3, equal unlabored respirations, skin warm/dry/pink. Patient denies pain at this time. Pain: Denies pain. Vital Signs: 18:44 BP 120 / 79; Pulse 107; Resp 16 S; Temp 98.2(O); Pulse Ox 95% on R/A; Weight 100.7 kg; jl7 Height 5 ft. 5 in. (165.10 cm); Pain 0/10; 20:00 BP 105 / 70; Pulse 90; Resp 19; Pulse Ox 99% ; rr5 21:18 BP 93 / 65; Pulse 91; Resp 16; Temp 98.0(O); Pulse Ox 96% on R/A; Pain 0/10; mt2 18:44 Body Mass Index 36.94 (100.70 kg, 165.10 cm) jl7 ED Course: 18:25 Patient arrived in ED. as 18:47 Triage completed. jl7 18:48 Arm band placed on right wrist. jl7 18:50 Rafael Dotosn PA is PHCP. [facility] 18:50 Haris Grove MD is Attending Physician. jmm 19:05 Vickey Main RN is Primary Nurse. rr5 19:30 Inserted saline lock: 20 gauge in right antecubital area, using aseptic technique. rr5 ,using aseptic technique. inserted by hedy Blood collected. 20:10 CT Abd/Pelvis - IV Contrast Only In Process Unspecified. EDMS 20:34 US Abdomen Limited In Process Unspecified. EDMS 21:08 Fernando Simpson MD is Referral Physician. jmm Administered Medications: 19:30 Drug: NS 0.9% 250 ml Route: IV; Rate: bolus; Site: right antecubital; rr5 20:30 Follow up: Response: No adverse reaction; IV Status: Completed infusion; IV Intake: rr5 250ml 19:31 Drug: Reglan 10 mg Route: IVP; Site: right antecubital; rr5 21:12 Follow up: Response: No adverse reaction; Pain is decreased mt2 19:34 Drug: diphenhydrAMINE 12.5 mg Route: IVP; Site: right antecubital; rr5 21:12 Follow up: Response: No adverse reaction; Pain is decreased mt2 Intake: 20:30 IV: 250ml; Total: 250ml. rr5 Outcome: 21:09 Discharge ordered by . gi 21:21 Patient left the ED. rr5 Signatures: Dispatcher [employer] EDMS Rafael Dotson PA PA jmm Martinez, Amelia as Leal, Jahala RN RN jl7 Vickey Main RN RN rr5 Hedy Dickson RN RN mt2
== END 2020-02-15 21:21 | disposition home or self-care (01) ==
LOC: ER 18:23
DX: R11.10 Vomiting, unspecified (principal); D25.9 Leiomyoma of uterus, unspecified; Z91.040 Latex allergy status; Z91.048 Other nonmedicinal substance allergy status
CPT/HCPCS: 36415; 74177; 76705; 80048; 80076; 81003; 81025; 83690; 85025; 96365; 96375; 99284; J1200; J2765; J7040; Q9967